=== PATIENT | male | born 1960 | race Caucasian/White ===

== ENCOUNTER 2025-07-06 06:08 | Day surgery (SDC) | payer OTHER, SELFPAY ==
--- NOTE | 2025-07-04 07:02 | EXP.HP ---
History of Present Illness *Admission Date: 07/06/25 *History of present illness: Mr. Enriquez is a 64-year-old gentleman who is here for follow-up screening/surveillance colonoscopy. His colonoscopy 11-12 years ago revealed some polyps and his last colonoscopy with me in December 2018 revealed 2 polyps (tubular adenomas x 2) which were removed. The patient did have complicated diverticulitis and underwent low anterior resection (Dr. Tucker Jones MD). The examination is deemed medically necessary for screening/surveillance colonoscopy. The patient has been seen, interviewed and examined prior to the procedure by both myself and the anesthesia provider. [facility] Disclaimer: The information contained in this section may have been updated after the patient was seen, as this information can be updated by other users. Medical History Sleep apnea treated with continuous positive airway pressure (CPAP) HTN (hypertension) Prediabetes Cholesteatoma of attic of left ear Surgical History H/O mastoidectomy Family History Mother Family history of stroke Father Family history of diabetes mellitus type II Lung cancer Social History (Updated 07/06/25 @ 07:14 by Jim Zamarripa CRNA) Smoking Status: Former smoker alcohol intake: current substance use type: denies use current occupational status: employed Travel in the last 8 weeks?: None Have you lived/traveled outside [place] in past 30 days?: No Contact w/someone who lives/traveled outside [place] past 30 days?: No Exposure to someone with infectious disease in past 14 days?: No Do you have a fever (greater than 100.4 F or 38 C)?: No Have you tested positive for COVID-19?: No Exposed to someone with COVID-19 in past 14 days?: No Do you have a sore throat?: No Do you have a cough?: No Do you have any weakness?: No Do you have any diarrhea?: No Are you experiencing any unusual bleeding?: No Do you have any muscle aches/pain?: No Do you have any abdominal pain?: No Are you experiencing loss of taste or smell?: No Review of Systems Review of Systems Review of systems (narrative): Negative *Cardiovascular Comments: Negative *Gastrointestinal Comments: Negative *Genitourinary Comments: Negative *Musculoskeletal Comments: Negative *Neurologic Comments: Negative Meds Home Medications and Allergies Home Medications ?Medication ?Instructions ?Recorded ?Confirmed ?Type amlodipine 10 mg tablet 10 mg PO DAILY 07/06/25 07/06/25 History ascorbic acid (vitamin C) 100 mg 100 mg PO BID 07/06/25 07/06/25 History tablet cholecalciferol (vitamin D3) 50 50 mcg PO DAILY 07/06/25 07/06/25 History mcg (2,000 unit) capsule (Vitamin D3) clonazepam 0.5 mg tablet (Klonopin) 0.5 mg PO BID PRN Anxiety 07/06/25 07/06/25 History hydrochlorothiazide 25 mg tablet 25 mg PO DAILY 07/06/25 07/06/25 History hydrocodone 7.5 mg-acetaminophen 1 tab PO BID PRN Pain 07/06/25 07/06/25 History 300 mg tablet multivitamin with minerals-iron 1 ml PO DAILY 07/06/25 07/06/25 History fumarate 9 mg iron/15 mL oral liquid (Multi Vitamin) olmesartan 20 mg tablet 20 mg PO DAILY 07/06/25 07/06/25 History omeprazole 20 mg capsule,delayed 20 mg PO DAILY 07/06/25 07/06/25 History release tadalafil 5 mg tablet 5 mg PO DAILY 07/06/25 07/06/25 History New Prescriptions to Start Prescriptions: Allergies Allergy/AdvReac Type Severity Reaction Status Date / Time No Known Allergies Allergy Verified 07/06/25 06:35 Exam *Routine HEENT Exam Head: Present normocephalic Eye: Present EOMI and PERRL ENT: Present mucous membranes moist *Routine Neck Exam Neck: Present supple *Routine Respiratory Exam Respiratory: Present CTA bilaterally *Routine Cardiovascular Exam Cardiovascular: Present RRR *Routine Abdominal Exam Abdominal: Present soft and normoactive bowel sounds; Absent tenderness *Routine Rectal Exam Rectal:: deferred *Routine Genitalia Exam Genitalia:: deferred *Routine Extremities Exam Extremities: Absent cyanosis, clubbing or edema *Routine Skin Exam Skin: Present warm; Absent rash *Routine Neurological Exam Neurological: Present alert and oriented X3 Assessment and Plan *Assessment and plan (1) Personal history of adenomatous and serrated colon polyps: Status: Acute Category: Medical Code(s): Z86.0101 - Personal history of adenomatous and serrated colon polyps (2) Screening for colon cancer: Status: Acute Category: Medical Code(s): Z12.11 - Encounter for screening for malignant neoplasm of colon Plan A/P: 1. Personal history of adenomatous colon polyps is the preprocedural diagnosis. The patient will be anesthetized/sedated using MAC sedation. The patient has been seen and examined. Cardiac and lung assessment prior to the examination is stable. Proceed with planned screening colonoscopy.
[2025-07-04 08:36] VITALS: BMI 30.5
--- NOTE | 2025-07-06 06:38 | HMH.PROCNOTE ---
[facility] Procedure Note Date: 07/06/25 Time: 07:57 Procedure Note:: Colonoscopy Procedure Report: Colonoscopy with cold snare polypectomy Endoscopist: Hill Epperson II, MD Referring physician: Liliana Noble MD Date of Procedure: July 06, 2025 Equipment: Olympus [id number] adult colonoscope Sedation: MAC sedation Indication: Mr. Enriquez is a 64-year-old gentleman who is here for follow-up screening/surveillance colonoscopy. His colonoscopy 11-12 years ago revealed a few polyps and his last colonoscopy with az in December 2018 revealed 2 polyps (tubular adenomas x 2) which were removed. The patient did have complicated diverticulitis and underwent low anterior resection (Dr. Tucker Jones MD). The patient reports no abdominal pain, weight loss, change in his bowel habits or rectal bleeding. He reports no family history of colon cancer. He does note some difficulty getting clean after a bowel movement with some excessive wiping. The examination is deemed medically necessary for screening/surveillance colonoscopy. Procedure: Prior to the procedure, a history and physical exam was performed, and patient's medications and allergies were reviewed. The risks, benefits and alternatives of the sedation and procedure were discussed with the patient. All questions were answered and informed consent was obtained. The patient was brought to the procedure room. Patient identification and proposed procedure were verified by the physician and the nurse. The patient was placed in a left lateral decubitus position and the scope was passed under direct vision. Throughout the procedure, the patient's blood pressure, pulse, and oxygen saturations were monitored continuously. The colonoscopy was accomplished without difficulty. The patient tolerated the procedure well. Findings: On digital rectal examination there was normal rectal tone. There were very small tag and small perianal condylomata. The prostate was 2+, smooth, soft, symmetric without nodules. The colonoscope was introduced through the anal canal to the rectum and advanced to the cecum. The ileocecal valve and appendiceal orifice were identified. The scope was advanced a short distance into the ileum which appeared grossly normal. The scope was then withdrawn into the colon. There were 6 colon polyps (cecum x 1 (6 to 7 mm), ascending x 2 (3 and 4 mm), transverse x 1 (4 mm), sigmoid x 1 (4 mm) and rectal x 1 (3 mm)). These were all removed via cold snare polypectomy. The remaining cecum, ascending and transverse colon and mucosa were grossly normal. There were very mildly scattered shallow diverticuli in the sigmoid colon. The rectum itself was normal. Upon retroflexion within the rectum there were grade 1-2 internal hemorrhoids. The preparation was excellent throughout with [place] Preparation Score of 9. The cecal time was 14 minutes. Impression: 1. Diminutive colonic polyps x 6 2. Mild sigmoid diverticulosis 3. Grade 1-2 internal hemorrhoids Plan: I will follow-up the polyp histology and recommend repeat screening/surveillance colonoscopy again in 3 to 5 years based upon the pathology. I would encourage psyllium Konsyl bulking fiber supplementation on a long-term daily maintenance basis. I will discuss the findings with the patient and family.
[2025-07-06 06:44] VITALS: BP 158/91; PULSE 104; RESP 17; TEMP 36.4; O2SAT 93
[2025-07-06] MEDS: LACTATED RINGERS 1000ML 1,000 ML 50 ML IV (06:48)
--- NOTE | 2025-07-06 07:13 | EXP.ANES.CKL ---
[facility] Disclaimer: The information contained in this section may have been updated after the patient was seen, as this information can be updated by other users. Medical History Sleep apnea treated with continuous positive airway pressure (CPAP) HTN (hypertension) Prediabetes Cholesteatoma of attic of left ear Surgical History H/O mastoidectomy Family History Mother Family history of stroke Father Family history of diabetes mellitus type II Lung cancer Social History Smoking Status: Former smoker alcohol intake: current substance use type: denies use current occupational status: employed Travel in the last 8 weeks?: None [facility] Anesthesia Checklist Patient Identification Patient Identification: Arm Band and Verbal (Name & ) Structural Data Admitted From: Home Planned Operative Procedure/s: Colonoscopy Consent for Planned Operative Procedure(s) Verified: Yes Verified Documents: Surgical Consent NPO Status Verified Time NPO: 00:00 Chart Verification Results Verified: None Additional verifications Anesthesia Reactions: No Airway Assessment Mallampati Score:: Class II C-Spine Mobility Assessed: Yes TMJ Mobility Assessed: Yes Dentition: Good Dentition Neurological Assessment Level of Consciousness: Awake, Alert and Appropriate Hx Seizures: No Numbness or tingling in extremities: No Anesthesia Plan Anesthesia Risk discussed: Yes Anesthesia Plan: Verified ASA Class: II Anesthesia Type: MAC
[2025-07-06 07:54] VITALS: BP 125/67; PULSE 92; RESP 14; TEMP 36.6; O2SAT 90
[2025-07-06 08:04] VITALS: BP 110/67; PULSE 86; RESP 14; O2SAT 92
[2025-07-06 08:14] VITALS: BP 145/71; PULSE 92; RESP 16; O2SAT 91
[2025-07-06 08:24] VITALS: BP 152/87; PULSE 79; RESP 16; O2SAT 92
[2025-07-06 08:34] VITALS: BP 136/81; PULSE 80; RESP 16; TEMP 36.8; O2SAT 92
== END 2025-07-06 08:47 | disposition home or self-care (01) ==
PROVIDERS: PCP Internal Medicine; Visit Provider Internal Medicine Gastroenterology
PROC: 0DJD8ZZ Inspection of Lower Intestinal Tract, Via Natural or Artificial Opening Endoscopic (ICD-10-PCS; CPT 45378; principal; 2025-07-06 07:30)
DX: Z12.11 Encounter for screening for malignant neoplasm of colon (principal); D12.3 Benign neoplasm of transverse colon; K63.5 Polyp of colon; A63.0 Anogenital (venereal) warts; K64.4 Residual hemorrhoidal skin tags; K57.30 Diverticulosis of large intestine without perforation or abscess without bleeding; K64.0 First degree hemorrhoids; K64.1 Second degree hemorrhoids; I10 Essential (primary) hypertension; Z86.0101 Personal history of adenomatous and serrated colon polyps; Z87.891 Personal history of nicotine dependence
CPT/HCPCS: 45385; J2003; J2704; J7120